=== PATIENT | male | born 1970 | race Caucasian/White ===

== ENCOUNTER 2019-08-26 14:37 | Emergency (ER) | payer BC, SELFPAY ==
--- NOTE | 2019-08-26 14:47 | ED.GENADULT ---
HPI - General Adult General Chief complaint: Allergic Reaction Stated complaint: Pos Allergy Time Seen by Provider: 08/26/19 14:47 Source: patient Mode of arrival: ambulatory Limitations: no limitations History of Present Illness HPI narrative: 49-year-old male patient presents to the the medical center with complaints of allergic reaction. Patient states he woke up this morning and noticed that he had swelling to bilateral eyes, almost swollen shut. Patient states he is not having any chest pain or shortness of breath. Patient states he did take an antihistamine this morning and it did help with eye swelling. Patient denies coming into contact with anything that he is allergic to that he knows of. Patient states that he was working outside yesterday and it was very windy but denies any environmental allergens that he is aware of. Patient states he is an active smoker. Patient denies of any sore throat. Related Data Home Medications Medication Instructions Recorded Confirmed Benadryl 08/26/19 Allergies Allergy/AdvReac Type Severity Reaction Status Date / Time Penicillins Allergy Intermediate Rash Verified 08/26/19 14:56 Review of Systems Review of Systems: Narrative: CONSTITUTIONAL: Denies fever, chills, or sweats. EYES: Denies visual changes, redness, or discharge. Positive bilateral eye swelling ENT: Denies rhinorrhea, congestion, sore throat, or otalgia. CARDIOVASCULAR: Denies chest pain, palpitations, or edema. RESPIRATORY: Denies cough or dyspnea. GASTROINTESTINAL: Denies abdominal pain, nausea, vomiting, or diarrhea. GENITOURINARY: Denies dysuria or hematuria. SKIN: Denies rash or itching. MUSCULOSKELETAL: Denies back pain, joint pain, or myalgia. NEUROLOGIC: Denies headache, numbness, or weakness. PSYCHIATRIC: Denies anxiety or depression. PMFSH Comments At the time of my signature I agree with nursing past medical history, surgical, social, and family history. There is no relevant family history pertinent to the presenting complaint. Exam Narrative: Exam Narrative: GENERAL: Well-appearing, well-nourished, and in no acute distress. HEAD: Normocephalic, atraumatic. EYES: PERRLA and EOM intact without limitation or complaint of pain, bilateral periorbital soft tissue swelling , erythema, no warmth or tenderness noted, no obvious deformity. No crusting or swelling.no tearing or draining.No photophobia. No nystagmus No FB or lesion on lid eversion. Corneas grossly clear, no obvious FB or hyphens/hypopyon. No injection to sclera. Lids and lashes clear. ENT: Nares with erythema and edema noted bilaterally, no rhinorrhea or epistaxis. Mucous membranes moist. Posterior pharynx with slight erythema and 1+ tonsil enlargement. No exudates or lesions present. Bilateral TMs are clear no erythema or foreign bodies in the canal. NECK: Supple. No lymphadenopathy. No stridor noted on auscultation. CHEST: Clear to auscultation. No respiratory distress. Patient able talk in clear complete sentences. No tripoding noted. HEART: Regular rate and rhythm. No murmur heard. Normal peripheral pulses. ABDOMEN: Soft, nontender, nondistended, normal active bowel sounds. EXTREMITIES: Normal range of motion. No edema. SKIN: Warm, dry, no rash. NEURO: No focal deficits. Alert and oriented x3. Course Vital Signs Vital signs: Vital Signs Temperature 37.0 C 08/26/19 14:52 Pulse Rate 110 H 08/26/19 14:52 Respiratory Rate 18 08/26/19 14:52 Blood Pressure 165/98 H 08/26/19 14:52 Pulse Oximetry 98 08/26/19 14:52 Temperature 37.0 C 08/26/19 14:52 Pulse Rate 110 H 08/26/19 14:52 Respiratory Rate 18 08/26/19 14:52 Blood Pressure 165/98 H 08/26/19 14:52 Pulse Oximetry 98 08/26/19 14:52 Vital signs reviewed. Medical Decision Making Differential Diagnosis Differential Diagnosis: Differential diagnosis: Contact dermatitis, poison abdiel, poison sumac, psoriasis, eczema, allergic reaction, drug reaction, scabies, tinea
[2019-08-26 14:52] VITALS: BP 165/98; PULSE 110; RESP 18; TEMP 37; O2SAT 98
== END 2019-08-26 15:15 | disposition home or self-care (01) ==
PROVIDERS: Emergency Provider Nurse Practitioner Family
DX: H05.223 Edema of bilateral orbit (principal); T78.40XA Allergy, unspecified, initial encounter
CPT/HCPCS: 99203; G0463